=== PATIENT | male | born 1955 | race Caucasian/White ===

== ENCOUNTER 2016-04-21 13:04 | Emergency (ER) | payer BC ==
[2016-04-21 15:45] VITALS: BP 214/126
[2016-04-21] MEDS ORDERED: Acetaminophen TAB* 325 MG PO ONE (16:04)
[2016-04-21] MEDS ORDERED: HYDROcodone/ACETAMIN 5-325 MG* 1 TAB PO ONE (16:30)
--- NOTE | 2016-04-21 16:41 | RAD ---
Indication: Pain post twisting fall. Medial pain and swelling. History of fractures of the second and third metatarsals. Comparison: March 22, 2015 foot radiographs. Technique: AP, mortise, and lateral views RIGHT ankle. AP, lateral, and oblique views RIGHT foot. Report: Oblique fracture through the distal metaphysis of the fibula terminating inferiorly at the level of the ankle mortise. Up to one bone width lateral displacement of the lateral malleolus. The talus and avulsed medial malleolus fragment are displaced laterally with the lateral malleolus fragment. Associated talocrural joint effusion and marked soft tissue swelling most prominent over the lateral malleolus. Negative for fracture or malalignment at the RIGHT foot. Previous second and third metatarsal fractures are healed. Small Achilles tendon insertion bone spur. IMPRESSION: Mcgee type B 2 ankle fracture pattern with displacement as described.
--- NOTE | 2016-04-21 19:43 | UC ---
armando Pinto Timothy, scribed for Reina Baxter MD on 04/21/16 at 1557 . Lower Extremity/Ankle HPI - HPI Summary HPI Summary: Bobby David Sr. is a 60 yo male presenting to [facility] with injury and 4/10 pain to his right ankle S/P slipping on ice at home and twisting it at 1130 this morning. He states it hurts most on the inside of his ankle. He cannot bear weight on it. He broke both toes last year. He self-medicated with acetaminophen or aspirin, he is unsure which. His Hx includes HTN, COPD, emphysema, asthma, bladder tumor, general arthritis, anxiety with doctor visits , alcohol use and tobacco use for 40 years. He states he is allergic to ibuprofen, and breaks out in hives. Denies other injury with the fall. No LOC. No neck pain or back pain. - History of Current Complaint Chief Complaint: UCLowerExtremity Stated Complaint: ANKLE INJURY Time Seen by Provider: 04/21/16 16:01 Hx Obtained From: Patient Onset/Duration: Sudden Onset, Lasting Hours, Still Present Severity Initially: Moderate Severity Currently: Moderate Pain Intensity: 4 Pain Scale Used: 0-10 Numeric Aggravating Factor(s): Standing, Ambulation, Other - unable to bear weight Alleviating Factor(s): Rest Able to Bear Weight: No - Risk Factors Gout Risk Factors: Male DVT Risk Factors: Negative Septic Arthritis Risk Factor: Negative - Allergies/Home Medications Allergies/Adverse Reactions: Allergies Allergy/AdvReac Type Severity Reaction Status Date / Time Ibuprofen Allergy Intermediate Rash Verified 04/21/16 15:45 Povidone Iodine Allergy Intermediate Rash And Verified 04/21/16 15:45 [From Betadine] Itching Home Medications: Home Medications Lisinopril TAB* [Prinivil TAB*] 20 mg PO DAILY 04/21/16 [History Confirmed 04/21] Metoprolol Tartrate TAB* [Lopressor TAB*] 50 mg PO BID 04/21/16 [History Confirmed 04/21/16] Umeclidinium Lucama [Incruse Ellipta] 62.5 mcg IN 04/21/16 [History Confirmed 04/21/16] PMH/Surg Hx/FS Hx/Imm Hx Endocrine History Of: Denies: Diabetes, Thyroid Disease Cardiovascular History Of: Reports: Hypertension - on medication Denies: Cardiac Disorders, Congestive Heart Failure Respiratory History Of: Reports: COPD, Asthma GI/ History Of: Denies: Ulcer, Renal Disease Psychological History Of: 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 - Surgical History Surgical History: Yes Surgery Procedure, Year, and Place: TUMOR REMOVED "FROM DOWN BELOW" - Family History Known Family History: Positive: Hypertension, Diabetes, Other - hypercholesterolemia - Social History Occupation: Employed Full-time Alcohol Use: Daily Alcohol Amount: 3-4 DRINKS/DAY Substance Use Type: None Smoking Status (MU): Current Every Day Smoker Type: Cigarettes Amount Used/How Often: 1/2 PPD Length of Time of Smoking/Using Tobacco: 46+ YEARS Have You Smoked in the Last Year: Yes Household Exposure Type: Cigarettes - Immunization History Most Recent Influenza Vaccination: 2014 Most Recent Tetanus Shot: PT. STATES 2 YEARS AGO Most Recent Pneumonia Vaccination: NO Review of Systems Constitutional: Negative Skin: Negative Eyes: Negative ENT: Negative Respiratory: Negative Cardiovascular: Negative Gastrointestinal: Negative Genitourinary: Negative Motor: Negative Neurovascular: Negative Musculoskeletal: Other: - right ankle pain Neurological: Negative Psychological: Negative All Other Systems Reviewed And Are Negative: Yes Physical Exam Triage Information Reviewed: Yes Appearance: Well-Appearing, Well-Nourished, Pain Distress - moderate Vital Signs: Initial Vital Signs Temp 98.7 F 04/21/16 15:40 Pulse 81 04/21/16 15:40 Resp 18 04/21/16 15:40 BP 214/126 04/21/16 15:40 Pulse Ox 100 04/21/16 15:40 elevated BP noted Vital Signs Reviewed: Yes Eyes: Positive: Conjunctiva Clear ENT: Positive: Hearing grossly normal, Muffled/hoarse voice Neck: Positive: Supple, Nontender Respiratory: Positive: Lungs clear, Normal breath sounds, No respiratory distress Cardiovascular: Positive: RRR, No Murmur, Pulses Normal, Brisk Capillary Refill Musculoskeletal: Positive: Strength Intact, ROM Intact, Other: - Long toe nails , tenderness at medial malleoulus. Good DP pulse,. Edema at medial and lateral malioli, bilaterally. Unable to sense posterior tibia pulse (due to swelling?). No proximal tib-fib tenderness. Whitish discoloration at anterior tibia, capillary refill in the foot intact. Neurological: Positive: Alert, Muscle Tone Normal Psychological Exam: Normal Skin Exam: Normal Procedures - Procedure Summary Procedure Summary: Splint application began 1739. Pt tolerated Tx well. - Splinting Location: Right ankle Hand-Made Type: orthoglass Splint: with U-brace Pre-Proc Neuro Vasc Exam: normal Post-Proc Neuro Vasc Exam: unchanged from pre-exam Diagnostics - Radiology R ankle XR Xray Interpretation: Positive (See Comments) - IMPRESSION: Bolivar type B 2 ankle fracture pattern with displacement as described. Radiology Interpretation Completed By: Radiologist - R ankle XR R foot XR Xray Interpretation: Positive (See Comments) - IMPRESSION: Bolivar type B 2 ankle fracture pattern with displacement as described. Radiology Interpretation Completed By: Radiologist Re-Evaluation - Re-Evaluation First Eval Re-Evaluation Time: 16:27 Change: Unchanged Comment: X-rays have been taken, awaiting report from radiologist. His is now here. Upon questioning, Pt states he is sure he took his blood pressure medication this morning. He will be given hydrocodone for pain. Second Eval Re-Evaluation Time: 17:11 Change: Unchanged Comment: PT is informed of results of XR, and will have a splint applied with a U-brace. He was instructed to follow up with Dr. Rodas tomorrow. Lower Extremity Course/Dx - Course Course Of Treatment: Bobby David is a 60 yo male presenting to [facility] with right ankle pain after slipping on ice and twisting it. He appears here with BP of 214/126. After X-rays of the right ankle and foot, he appears to have a bolivar type B 2 fracture in his right ankle. ISTOP was consulted, and there were no searchable terms. He will be discharged with fracture after application of posterior splint with U-brace, and instructions to follow up with Dr. Rodas's office tomorrow. - Differential Dx/Diagnosis Differential Diagnosis/HQI/PQRI: Fracture (Closed), Sprain, Strain Provider Diagnoses: Tobacco abuse disorder, elevated blood pressure in poor control, right ankle Bolivar type B 2 fracture. - Physician Notifications Discussed Patient Care With: [id number] - Dr. Rodas (Orthopedics) - Discussed Pt condition. Recommends sugar tong splint with posterior brace. Pt should call for follow up in am. Instructed by Provider To: Have Pt Call For Appt. Discharge - Discharge Plan Condition: Stable Disposition: HOME Patient Education Materials: Ankle Fracture (ED), Crutch Instructions (ED) Forms: *Work Release Referrals: Kt Rodas MD [Medical Doctor] - 1 Day Yakov Grant PA [Primary Care Provider] - Raymond ROBB,Bradley Moser [Doctor of Podiatric Medicine] - 1 Week Additional Instructions: Follow up with Dr. Andrade of podiatry regarding your toe nails. Follow up tommorrow with Dr. Rodas regarding your ankle fracture. Return to urgent care or the emergency department with any new or worsening symptoms. The documentation as recorded by the armando austin Timothy accurately reflects the service I personally performed and the decisions made by , Reina Baxter MD.
== END 2016-04-21 18:22 | disposition home or self-care (01) ==
LOC: UCEAST 13:04
DX: S82.891A Other fracture of right lower leg, initial encounter for closed fracture (principal); W00.0XXA Fall on same level due to ice and snow, initial encounter; Y93.9 Activity, unspecified; Y92.008 Other place in unspecified non-institutional (private) residence as the place of occurrence of the external cause; I10 Essential (primary) hypertension; J44.9 Chronic obstructive pulmonary disease, unspecified; Z88.6 Allergy status to analgesic agent; F17.210 Nicotine dependence, cigarettes, uncomplicated
CPT/HCPCS: 99213; A9270-GY; G0463